=== PATIENT | male | born 1955 | race Caucasian/White ===

== ENCOUNTER 2017-08-11 09:47 | Day surgery (SDC) | payer MEDICARE, MEDICAID ==
[2017-08-10 13:51] VITALS: BMI 168.0
--- NOTE | 2017-08-11 13:19 | OP ---
DATE OF PROCEDURE: 08/11/2017 SURGEON: Ben Rojo M.D. OPERATIVE PROCEDURE: Colorectal cancer screening colonoscopy. POSTOPERATIVE DIAGNOSIS: Normal colonoscopy. RECOMMENDATIONS: Repeat colonoscopy in 10 years for screening purposes. With regards to the patient's chronic hepatitis B, his recent LFTs were stable. He had indirect hype rbilirubinemia. His AFP was normal at 13. His hepatitis B DNA was not run as there was insufficient quantity and I will reorder this. PROCEDURE IN DETAIL: After the patient was informed of risks, benefits, possible complications of en doscopy including perforation, bleeding, reactions to medication and aspiration, informed consent was obtained. The patient brought to endoscopy suite where standard fashion. Once he was comfortable a rectal exam was performed which was normal. The endoscope was advanced through anal canal through t he colon. Cecum was identified by ileocecal valve and appendiceal orifice. Terminal ileum was found to be normal. The scope was then slowly removed. The prep was good. There was no evidence of poly ps, mass lesions or AVMs. Forward and retroflexed views in the rectum were normal. The scope was re moved. The patient tolerated the procedure well with no complications.
[2017-08-11] MEDS ORDERED: Propofol 200 MG/20 ML VIAL ONE (14:04)
[2017-08-11] MEDS ORDERED: Lidocaine 1% PF 5 ML VIAL ONE (14:04)
[2017-08-11] MEDS ORDERED: ePHEDrine/0.9% NaCl/PF SYRINGE 50 mg/10 ml ONE (14:04)
[2017-08-13 13:17] LABS: HBV as IU/mL <10 IU/mL (.)
== END 2017-08-11 13:12 | disposition home or self-care (01) ==
LOC: SDC 09:47
PROVIDERS: ATTEND Internal Medicine Gastroenterology
PROC: 0DJD8ZZ Inspection of Lower Intestinal Tract, Via Natural or Artificial Opening Endoscopic (ICD-10-PCS; principal; 2017-08-11)
DX: Z12.11 Encounter for screening for malignant neoplasm of colon (principal); E78.5 Hyperlipidemia, unspecified; G47.30 Sleep apnea, unspecified; Q90.9 Down syndrome, unspecified; F70 Mild intellectual disabilities; E03.9 Hypothyroidism, unspecified; Z90.01 Acquired absence of eye; Z79.82 Long term (current) use of aspirin; Z79.51 Long term (current) use of inhaled steroids; Z79.899 Other long term (current) drug therapy; Z88.0 Allergy status to penicillin; Z88.8 Allergy status to other drugs, medicaments and biological substances; Z98.890 Other specified postprocedural states
CPT/HCPCS: 36415; 87517; J2001; J2704

== ENCOUNTER 2021-03-31 10:17 | Outpatient (CLI) | payer MEDICARE, MEDICAID | END 2021-03-31 10:18 | disposition home or self-care (01) | LOC: BICULT 10:17 | PROVIDERS: ATTEND Internal Medicine Gastroenterology | DX: B19.10 Unspecified viral hepatitis B without hepatic coma (principal); Z90.49 Acquired absence of other specified parts of digestive tract | CPT/HCPCS: 76705 ==

== ENCOUNTER 2022-05-20 09:14 | Outpatient (CLI) | payer MEDICARE, MEDICAID | END 2022-05-20 09:15 | disposition home or self-care (01) | LOC: BICULT 09:14 | PROVIDERS: ATTEND Physician Assistant Medical | DX: B19.10 Unspecified viral hepatitis B without hepatic coma (principal); K76.9 Liver disease, unspecified | CPT/HCPCS: 76705 ==

== ENCOUNTER 2022-06-16 11:52 | Outpatient (CLI) | payer MEDICARE, MEDICAID ==
[~2022-06-16 11:52] MED LIST: GASTROGRAFIN 30 ML BOT ONE; Iopamidol 370 76% 100 ML VIAL ONE
== END 2022-06-16 11:53 | disposition home or self-care (01) ==
LOC: CT 11:52
PROVIDERS: ATTEND Internal Medicine Gastroenterology
DX: B19.10 Unspecified viral hepatitis B without hepatic coma (principal); D75.1 Secondary polycythemia; R93.2 Abnormal findings on diagnostic imaging of liver and biliary tract; K44.9 Diaphragmatic hernia without obstruction or gangrene
CPT/HCPCS: 74170; 82565; Q9963; Q9967

== ENCOUNTER 2024-02-23 10:43 | Outpatient (CLI) | payer MEDICARE, MEDICAID | END 2024-02-23 10:44 | disposition home or self-care (01) | LOC: BICULT 10:43 | PROVIDERS: ATTEND Physician Assistant Medical | DX: B19.10 Unspecified viral hepatitis B without hepatic coma (principal) | CPT/HCPCS: 76705 ==